=== PATIENT | female | born 1995 | race Caucasian/White ===

== ENCOUNTER 2016-12-22 16:57 | Emergency (ER) | payer SELFPAY ==
[2016-12-22 17:06] VITALS: BP 119/68; PULSE 98; RESP 16; TEMP 98.5; O2SAT 100
--- NOTE | 2016-12-22 17:13 | C.PDOC ---
History Of Present Illness 21 yo female come in for evaluation of Left big toe pain, swelling, scant discharges noted for past week " after had pedicure done". Otherwise, pt denies fever, chills, denies known direct trauma or injury, denies weakness, sensory or vascular deficits to Left foot. Ambulate to Ed for evaluation, not in nay apparent distress. Time Seen by Provider: 12/22/16 17:08 Chief Complaint (Nursing): Lower Extremity Problem/Injury History Per: Patient Onset/Duration Of Symptoms: Gradual Past Medical History Reviewed: Historical Data, Nursing Documentation, Vital Signs Vital Signs: Last Vital Signs Temp 98.5 F 12/22/16 17:04 Pulse 98 H 12/22/16 17:04 Resp 16 12/22/16 17:04 BP 119/68 12/22/16 17:04 Pulse Ox 100 12/22/16 17:13 - Medical History PMH: Asthma Surgical History: No Surg Hx Family History: States: No Known Family Hx - Social History Hx Tobacco Use: No Hx Alcohol Use: No Hx Substance Use: No - Immunization History Hx Tetanus Toxoid Vaccination: Yes Hx Influenza Vaccination: No Hx Pneumococcal Vaccination: No Review Of Systems Except As Marked, All Systems Reviewed And Found Negative. Constitutional: Negative for: Fever, Chills Musculoskeletal: Positive for: Foot Pain Skin: Positive for: Lesions Neurological: Negative for: Weakness, Numbness Physical Exam - Physical Exam Appears: Well, Non-toxic, No Acute Distress Skin: Normal Color, Warm, Dry Extremity: Normal ROM (Left foot), Tenderness (Left 1st toe along medial aspect nail mild edema, erythema and tenderness. No flactualnce, no discharges noted. no proximal streaking. FAROM, no neurovascular deficist to left foot.), Capillary Refill (less than 2sec to Left foot), No Deformity Neurological/Psych: Oriented x3, Normal Speech, Normal Motor, Normal Sensation, Normal Reflexes ED Course And Treatment O2 Sat by Pulse Oximetry: 100 Progress Note: On re-eavl, pt is afebrile, hemodynamicaly stable. Non-toxic. Ambulaoty irn ED with stable gait. Left foot: exam c/w mild 1st toe ingrown nail, no flactulance. FAROM, no neurovascular deficits. Pt advised and ref. to f/u with Poll Clerk in 2-3 dyas for re-eval. return to Ed if any worsening or new changes. Disposition Counseled Patient/Family Regarding: Diagnosis, Need For Followup, Rx Given - Disposition Referrals: [facility] [Outside] Disposition: HOME/ ROUTINE Disposition Time: 17:23 Condition: STABLE Additional Instructions: WARM SALTY WATER FOOT SOAKS WITH 1TABLESPOON PLAIN VINEGAR1-2 TIMES DAILY FOR 5 MINUTES TAKE MEDICATION PRESCRIBED IF NO IMPROVEMENT, FOLLOW UP WITH PODIAT[facility] CLINIC AT [facility] ON MONDAYS FROM 8AM-12 NOON RETURN TO ED IF ANY WORSENING OR NEW CHANGES. Prescriptions: Sulfamethoxazole/Trimethoprim [Bactrim DS 800 mg-160 mg] 1 tab PO BID #14 tab Instructions: Ingrown Nail (ED) Forms: [facility] (Anguillan) - Clinical Impression Clinical Impression: Ingrown nail
[2016-12-22] MEDS ORDERED: Tmp-Smz 800 mg-160 mg DS Tab PO STA (17:22)
[2016-12-22] MEDS ORDERED: Tmp-Smz 800 mg-160 mg DS Tab ONE (17:30)
== END 2016-12-22 17:39 | disposition home or self-care (01) ==
LOC: C.ER 16:57
DX: L60.0 Ingrowing nail (principal)

== ENCOUNTER 2017-08-28 00:07 | Emergency (ER) | payer MEDICAID ==
[2017-08-28 00:37] VITALS: RESP 18; O2SAT 99
--- NOTE | 2017-08-28 01:31 | C.PDOC ---
History Of Present Illness 22 year old female presents to the ED c/o body aches, subjective fever, vomiting and diarrhea since yesterday. Patient reports she had not vomited today was able to tolerate PO fluids but still is c.o headache ad loose stools. Patient's last bowel movement was today [employer]. Patient denies dysuria, hematuria, rash, recent travel, sick contacts. Time Seen by Provider: 08/28/17 00:40 Chief Complaint (Nursing): Flu-like Symptoms History Per: Patient History/Exam Limitations: no limitations Onset/Duration Of Symptoms: Days Current Symptoms Are (Timing): Still Present Location Of Pain: Diffuse Myalgias Sick Contacts (Context): None Associated Symptoms: Fever, Vomiting, Diarrhea Ear Symptoms: Bilateral: None Recent travel outside of the [place]: No Additional History Per: Patient Past Medical History Reviewed: Historical Data, Nursing Documentation, Vital Signs Vital Signs: Last Vital Signs Temp 98.5 F 08/28/17 01:36 Pulse 82 08/28/17 01:36 Resp 18 08/28/17 01:36 BP 110/71 08/28/17 01:36 Pulse Ox 99 08/28/17 03:26 - Medical History PMH: Asthma Surgical History: No Surg Hx Family History: States: Unknown Family Hx - Social History Hx Tobacco Use: No Hx Alcohol Use: No Hx Substance Use: No - Immunization History Hx Tetanus Toxoid Vaccination: Yes Hx Influenza Vaccination: No Hx Pneumococcal Vaccination: No Review Of Systems Constitutional: Positive for: Fever. Negative for: Chills ENT: Negative for: Nose Discharge, Nose Congestion Respiratory: Negative for: Shortness of Breath Gastrointestinal: Positive for: Vomiting, Diarrhea. Negative for: Abdominal Pain Skin: Negative for: Rash Neurological: Positive for: Headache. Negative for: Dizziness Physical Exam - Physical Exam Appears: Non-toxic, No Acute Distress Skin: Normal Color, Warm, Dry Head: Atraumatic, Normacephalic Eye(s): bilateral: Normal Inspection Ear(s): Bilateral: Normal Nose: No Discharge Oral Mucosa: Moist Throat: Normal, No Erythema, No Exudate Neck: Normal ROM, Supple Chest: Symmetrical Cardiovascular: Rhythm Regular, No Murmur Respiratory: Normal Breath Sounds, No Rales, No Rhonchi, No Wheezing Gastrointestinal/Abdominal: Soft, No Tenderness, No Guarding, No Rebound Extremity: Normal ROM, No Tenderness, No Swelling Neurological/Psych: Oriented x3, Normal Speech Gait: Steady ED Course And Treatment O2 Sat by Pulse Oximetry: 99 (ON RA) Pulse Ox Interpretation: Normal Progress Note: Plan: - Motrin 600 mg PO. On reassessment, patient is resting comfortably, and is in no acute distress. Patient was instructed to follow up with physician/clinic in 1-2 days for further evaluation. Return precautions d/ w pt who expressed understanding. Disposition - Disposition Referrals: Cole Quintero MD [Primary Care Provider] - Disposition: HOME/ ROUTINE Disposition Time: 01:46 Condition: GOOD Additional Instructions: Increase po fluids Decrease dairy or greasy foods Take tylenol and motrin for pain Return to ER if worse Prescriptions: Ibuprofen [Motrin] 600 mg PO Q6H #20 tab Instructions: Viral Upper Respiratory Infection, Adult (DC) Forms: [employer] (Yakut) Print Language: BRITISH [place] - Clinical Impression Clinical Impression: Viral syndrome - PA / OUTREACH LIBRARIAN / Resident Statement MD/DO has reviewed & agrees with the documentation as recorded. - Scribe Statement The provider has reviewed the documentation as recorded by the Scribe Finesse Marc All medical record entries made by the Scribe were at my direction and personally dictated by me. I have reviewed the chart and agree that the record accurately reflects my personal performance of the history, physical exam, medical decision making, and the department course for this patient. I have also personally directed, reviewed, and agree with the discharge instructions and disposition.
[2017-08-28 01:38] VITALS: BP 110/71; PULSE 82; TEMP 98.5
== END 2017-08-28 01:38 | disposition home or self-care (01) ==
LOC: SUPCPDRO 00:07 → C.ER 00:07
DX: B34.9 Viral infection, unspecified (principal)

== ENCOUNTER 2017-12-08 22:26 | Emergency (ER) | payer MEDICAID ==
[2017-12-08 22:45] VITALS: PULSE 85; TEMP 98.5
--- NOTE | 2017-12-08 22:47 | C.PDOC ---
<SolangeNohemimariel - Last Filed: 12/08/17 22:47> <Lakhwinder Powers - Last Filed: 12/08/17 22:50> Time Seen by Provider: 12/08/17 22:44 Chief Complaint (Nursing): Shortness Of Breath Past Medical History - Medical History PMH: Asthma Family History: States: Unknown Family Hx - Social History Hx Tobacco Use: No Hx Alcohol Use: No Hx Substance Use: No - Immunization History Hx Tetanus Toxoid Vaccination: Yes Hx Influenza Vaccination: No Hx Pneumococcal Vaccination: No <Nohemi Narvaezmariel - Last Filed: 12/08/17 22:47> Vital Signs: Last Vital Signs Temp 98.5 F 12/08/17 22:36 Pulse 85 12/08/17 22:36 Resp 20 12/08/17 22:36 BP 112/71 12/08/17 22:36 Pulse Ox 98 12/08/17 22:47 ED Course And Treatment O2 Sat by Pulse Oximetry: 98 <SolangeNohemimariel - Last Filed: 12/08/17 22:47> Medical Decision Making <SolangeNohemimariel - Last Filed: 12/08/17 22:47> <Lakhwinder Powers - Last Filed: 12/08/17 22:50> Medical Decision Making: not symptomatic now wants refill of puffer, neb machine, and home neb liquids (Lakhwinder Powers) Disposition Counseled Patient/Family Regarding: Studies Performed, Diagnosis - Disposition Disposition Time: 22:47 <SolangeNohemimariel - Last Filed: 12/08/17 22:47> Counseled Patient/Family Regarding: Studies Performed, Diagnosis <Lakhwinder Powers - Last Filed: 12/08/17 22:50> - Disposition Disposition: HOME/ ROUTINE Condition: GOOD Forms: [facility] (Romansh) - Clinical Impression Clinical Impression: Asthma, Medication refill
[2017-12-08 23:04] VITALS: BP 112/85; RESP 20; O2SAT 100
--- NOTE | 2017-12-09 05:47 | C.PDOC ---
History Of Present Illness 22-year-old female presents to the ED seeking refill of her asthma medication. Patient is currently asymptomatic and has no complaints at this time. She denies history of prior hospitalizations or intubations. Time Seen by Provider: 12/08/17 22:44 Chief Complaint (Nursing): Shortness Of Breath History Per: Patient History/Exam Limitations: no limitations Onset/Duration Of Symptoms: Hrs Current Symptoms Are (Timing): Gone Additional History Per: Patient Past Medical History Reviewed: Historical Data, Nursing Documentation, Vital Signs Vital Signs: Last Vital Signs Temp 98.5 F 12/08/17 23:00 Pulse 85 12/08/17 23:00 Resp 20 12/08/17 23:00 BP 112/85 12/08/17 23:00 Pulse Ox 100 12/09/17 05:48 - Medical History PMH: Asthma Surgical History: No Surg Hx Family History: States: Unknown Family Hx - Social History Hx Tobacco Use: No Hx Alcohol Use: No Hx Substance Use: No - Immunization History Hx Tetanus Toxoid Vaccination: Yes Hx Influenza Vaccination: No Hx Pneumococcal Vaccination: No Review Of Systems Constitutional: Positive for: Other (seeking refill of asthma medications) Physical Exam - Physical Exam Appears: Non-toxic, No Acute Distress, Other (obese young female ) Skin: Normal Color, Warm, Dry Head: Atraumatic, Normacephalic Eye(s): bilateral: Normal Inspection Oral Mucosa: Moist Neck: Supple Chest: Symmetrical, No Deformity, No Tenderness Cardiovascular: Rhythm Regular, No Murmur Respiratory: Normal Breath Sounds, No Rales, No Rhonchi, No Wheezing Extremity: Normal ROM, Capillary Refill (less than 2 seconds ) Neurological/Psych: Oriented x3, Normal Speech, Normal Cognition ED Course And Treatment O2 Sat by Pulse Oximetry: 100 (on RA) Pulse Ox Interpretation: Normal Disposition - Disposition Referrals: [facility] [Outside] [facility] [Outside] [facility] [Outside] [facility] [Outside] Disposition: HOME/ ROUTINE Condition: GOOD Prescriptions: Albuterol HFA [Ventolin HFA 90 mcg/actuation (8 g)] 0.09 mg IH 5XD #2 puff Albuterol/Ipratropium [Duoneb 3 MG/3 Ml-0.5 MG/3 Ml 3 Ml] 6 ml IH Q4H PRN #100 neb PRN Reason: asthma Nebulizer [Compact Compressor Nebulizer] 1 dev XX PRN PRN #1 dev PRN Reason: asthma Spacer, Inhalation [Aerochamber] 1 dev IH DAILY #1 dev Instructions: Asthma in Adults Forms: [facility] (Polish) - Clinical Impression Clinical Impression: Asthma, Medication refill - Scribe Statement The provider has reviewed the documentation as recorded by the Scribe (Nena Shepherd) Provider Attestation: All medical record entries made by the Scribe were at my direction and personally dictated by me. I have reviewed the chart and agree that the record accurately reflects my personal performance of the history, physical exam, medical decision making, and the department course for this patient. I have also personally directed, reviewed, and agree with the discharge instructions and disposition.
== END 2017-12-08 23:01 | disposition home or self-care (01) ==
LOC: C.ER 22:26
DX: J45.909 Unspecified asthma, uncomplicated (principal); Z76.0 Encounter for issue of repeat prescription